=== PATIENT | female | born 1995 | race Caucasian/White ===

== ENCOUNTER 2025-01-08 11:46 | Emergency (ER) | payer SELFPAY ==
[2025-01-08 11:46] VITALS: BP 134/91; PULSE 78; RESP 16; TEMP 36.6; O2SAT 98; BMI 32.6
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
[2025-01-08 14:07] VITALS: BP 134/91; PULSE 78; RESP 16; TEMP 36.6; O2SAT 98
== END 2025-01-08 14:08 | disposition home or self-care (01) ==
LOC: ED 14:06
PROVIDERS: Emergency Provider Emergency Medicine; Visit Provider Emergency Medicine
DX: S16.1XXA Strain of muscle, fascia and tendon at neck level, initial encounter (principal); S09.90XA Unspecified injury of head, initial encounter; V89.2XXA Person injured in unspecified motor-vehicle accident, traffic, initial encounter
CPT/HCPCS: 70450; 72125; 99283; A4216